=== PATIENT | male | born 1995 | race Caucasian/White ===

== ENCOUNTER 2025-03-28 10:53 | Emergency (ER) | payer BC ==
[~2025-03-28] VITALS: Ht 182.9 cm; Wt 77.1 kg
[2025-03-28 11:16] LABS: PLATELET COUNT (AUTO) 160 K/uL (152-348); RED BLOOD CELL COUNT(AUTO) 4.55 MIL/uL (4.06-5.63); RED CELL DISTRIBUTION WIDTH 14.9 % (12.1-16.2); WHITE BLOOD COUNT (AUTO) 7.2 K/uL (3.6-10.2)
[2025-03-28] MEDS: IV NORMAL SALINE 1000 ML BAG IV ONE (11:19)
[2025-03-28 11:27] LABS: CREATININE 1.1 mg/dL (0.6-1.3); SODIUM SERUM 144.0 mmol/L (136-145); UREA NITROGEN, BLOOD 9.0 mg/dL (7-18)
[2025-03-28 11:32] LABS: ASPARTATE AMINOTRANSFERASE 16.0 U/L (15-37); TOTAL PROTEIN, SERUM 7.6 g/dL (6.4-8.2)
[2025-03-28] MEDS ORDERED: SWABABLE VALVE TRANSFER SET EA MC ONE (11:54)
[2025-03-28] MEDS ORDERED: IV NORMAL SALINE 250 ML IV ONE (11:54)
[2025-03-28] MEDS ORDERED: IOHEXOL 300MG/ML 100 ML INFUS..BTL ONE (11:54)
[2025-03-28] MEDS ORDERED: CEFTRIAXONE /D5W 50ML IVPB **ER PYXIS IV ONE (12:16)
[2025-03-28] MEDS: CEFTRIAXONE 500 MG VIAL IV ONE (12:21)
[2025-03-28] MEDS ORDERED: AMOX-430 PO (13:18)
[2025-03-28] MEDS ORDERED: IBUP-1955 PO (13:18)
[2025-03-28 14:00] VITALS: BP 139/76
[2025-03-28 15:29] VITALS: BP 139/76; O2SAT 99
== END 2025-03-28 15:30 | disposition home or self-care (01) ==
LOC: ER 10:53
DX: L03.211 Cellulitis of face (principal); K04.7 Periapical abscess without sinus; F15.10 Other stimulant abuse, uncomplicated; Z79.899 Other long term (current) drug therapy
CPT/HCPCS: 99285; 96374; 70481; 96375; 80076; 80048; 85025; 84145; 86140; 36415; 83605; J0696; Q9967; J7040; A4606; A4663